=== PATIENT | male | born 1990 | race Caucasian/White ===

== ENCOUNTER 2022-04-07 05:37 | Emergency (ER) | payer SELFPAY ==
[~2022-04-07] VITALS: Ht 165.1 cm; Wt 73.0 kg
[~2022-04-07 05:37] MED LIST: CEPH500C2 MT; IBUP-2029 MT
[2022-04-07 05:53] VITALS: BP 130/86
[2022-04-07] MEDS ORDERED: CEFAZOLIN SODIUM 1000MG/VIAL IM ONE (09:45)
[2022-04-07] MEDS ORDERED: CEPH500C2 MT (09:58)
[2022-04-07] MEDS ORDERED: TETANUS, DIPHTHERIA, PERTUSSIS VAC/PF 0.5ML (>10YR OLD) IM ONE (10:00)
[2022-04-07] MEDS ORDERED: IBUP-2029 MT (10:08)
== END 2022-04-07 10:30 | disposition home or self-care (01) ==
LOC: ER 05:37
DX: S61.412A Laceration without foreign body of left hand, initial encounter (principal); X58.XXXA Exposure to other specified factors, initial encounter; Y93.89 Activity, other specified; Y92.89 Other specified places as the place of occurrence of the external cause; Y99.8 Other external cause status; Z98.890 Other specified postprocedural states; Z79.899 Other long term (current) drug therapy; Z28.9 Immunization not carried out for unspecified reason
CPT/HCPCS: 73130; 90471; 90715; 96372; 99284; J0690